=== PATIENT | male | born 1970 | race Caucasian/White ===

== ENCOUNTER → 2018-12-27 | Day surgery (SDC) | payer BC ==
[~2018-12-27] MED LIST: APRE30TA2 PO; GLYCOPYRROLATE 1 MG/5 ML VIAL. ONE; IBUP-1027 PO; IV RINGERS,LACTATED 1000ML 1,000 ML IV ONE; IV RINGERS,LACTATED 1000ML 1,000 ML IV SCH; LIDOCAINE 1% PF 2 ML VIAL. ID PRN; LIDOCAINE 2% PF 5 ML VIAL. ONE; LOPE2CAP PO; MIDAZOLAM HCL/PF 2 MG/2 ML VIAL. IV PRN; OMEP20CA10 PO; PROPOFOL 40 ML IV ONE; fentaNYL PF VIAL 100 MCG/2 ML VIAL IV PRN
[2018-12-27 10:17] VITALS: BP 112/72
--- NOTE | 2018-12-28 17:09 | PATHOLOGY ---
[facility] Accession Number: [id number] . 01 Material submitted: . PART A: GASTRIC POLYP BIOPSY PART B: ILEUM NODULARITY BIOPSY PART C: CECUM POLYP BIOPSY . 01 Clinical history: . GERD, screening . 02 Diagnosis: A. Gastric biopsy, gastric polyp: - Fundic gland polyp. . B. Small intestinal mucosa, ileum nodularity biopsy: - Several hyperplastic mucosal-associated lymphoid aggregates (Peyer's patch). . C. Colon biopsy, cecal polyp: - Tubular adenoma. (JPM:doug; 12/28/2018) QMS/12/28/2018 . 02 Comment: Sections of the gastric polyp biopsy reveal segments of gastric body mucosa showing scattered cystically dilated fundic glands consistent with fundic gland polyp. There are no adenomatous changes or evidence of malignancy. . Sections of the ileum nodularity biopsy reveal segments of small intestine mucosa containing several focally hyperplastic mucosal-associated lymphoid aggregates (Peyer's patch). There are no sprue-like changes or significant inflammatory changes. . Sections of the cecal biopsy reveal a tubular adenoma showing no high-grade dysplasia or evidence of malignancy. (JPM:doug; 12/28/2018) . 02 Electronically signed: . Dickson Ivey MD, Pathologist NPI- [id number] . 01 Gross description: . A. Received in formalin labeled "Dickson King, gastric polyp BX," are 3 segments of martinez soft tissue measuring 0.7 x 0.6 x 0.3 cm in aggregate dimensions and ranging from 0.1 to 0.4 cm in maximum dimension. The specimen is submitted entirely in cassette A1. . B. Received in formalin labeled "Dickson King, ileum nodularity BX," are 4 segments of martinez soft tissue measuring 0.9 x 0.8 x 0.3 cm in aggregate dimensions and ranging from 0.2 to 0.4 cm in maximum dimension. The specimen is submitted entirely in cassette B1. . C. Received in formalin labeled "Dickson King, cecum polyp BX," is a single segment of martinez soft tissue measuring 0.6 cm in maximum dimension. The specimen is entirely submitted in cassette C1. (TSD; 12/27/2018) TOB/TOB . 02 Pathologist provided ICD-10: D12.0, K31.7 . 02 CPT . 566691, 899778, 364761 Specimen Comment: A courtesy copy of this report has been sent to Specimen Comment: [phone], . Specimen Comment: Report sent to / DR MARTIN Specimen Comment: A duplicate report has been generated due to demographic updates. Performed at: 01 [facility] [address], [place] [id number] MD Wayne Gonzalez MD Phone: [phone] Performed at: [facility] [address], [place] [id number] MD Dickson Ivey MD Phone: [phone]
== END | disposition home or self-care (01) ==
LOC: SURG 08:26
PROVIDERS: ATTEND Internal Medicine
DX: D12.0 Benign neoplasm of cecum (principal); K31.7 Polyp of stomach and duodenum; K44.9 Diaphragmatic hernia without obstruction or gangrene; K62.4 Stenosis of anus and rectum; Z80.0 Family history of malignant neoplasm of digestive organs; K63.89 Other specified diseases of intestine; K21.9 Gastro-esophageal reflux disease without esophagitis; Z82.49 Family history of ischemic heart disease and other diseases of the circulatory system; Z79.899 Other long term (current) drug therapy; Z98.890 Other specified postprocedural states
CPT/HCPCS: 43239; 45380; 88305; J2001; J2704; J3490